=== PATIENT | female | born 1975 | race African-American/Black ===

== ENCOUNTER 2021-04-01 14:55 | Emergency (ER) | payer MEDICAID ==
[~2021-04-01] VITALS: Ht 167.6 cm; Wt 102.1 kg
--- NOTE | 2021-04-01 15:07 | NUR ---
TO ER BED 3, C/O PAIN ON LT BREAST WHICH ALSO LEAKS SMALL AMOUNT OF FLUID, STARTED LAST MONTH, AAOX4, BREATHING EVEN AND UNLABORED, ATTACHED TO MONITOR
[2021-04-01] MEDS ORDERED: HYDROCODONE/APAP 10/325MG TABLET ONE (15:58)
[2021-04-01] MEDS ORDERED: ONDANSETRON 4 MG TAB.RAPDIS ONE (15:59)
[2021-04-01] MEDS ORDERED: HYDROCODONE/APAP 10/325MG TABLET PO ONE (16:00)
[2021-04-01] MEDS ORDERED: ONDANSETRON 4 MG TAB.RAPDIS SL ONE (16:00)
[2021-04-01] MEDS ORDERED: HYDR-4279 PO (18:05)
[2021-04-01 18:12] VITALS: BP 132/96
== END 2021-04-01 18:13 | disposition home or self-care (01) ==
LOC: ER 15:03
DX: N64.4 Mastodynia (principal); Z98.890 Other specified postprocedural states; Z88.8 Allergy status to other drugs, medicaments and biological substances
CPT/HCPCS: 76642; 99284; Q0162